=== PATIENT | male | born 1960 ===

== ENCOUNTER 2023-11-23 06:53 | Day surgery (SDC) | payer OTHER ==
[2023-11-23] MEDS ORDERED: FLUMAZENIL 0.5 MG/5 ML ML IV STA (10:26)
[2023-11-23] MEDS ORDERED: fentaNYL CITRATE 50 MCG/ML AMPUL IV PUSH ONE (10:30)
[2023-11-23] MEDS ORDERED: DIPHENHYDRAMINE HCL 50 MG/ML VIAL 1ML IV ONE (10:30)
[2023-11-23] MEDS ORDERED: MIDAZOLAM HCL 2 MG/2 ML VIAL IV ONE (10:30)
== END 2023-11-23 12:10 | disposition home or self-care (01) ==
LOC: AMB-ENDOS 06:53
PROVIDERS: ATTEND Colon & Rectal Surgery
DX: K63.5 Polyp of colon (principal); K62.1 Rectal polyp; K57.30 Diverticulosis of large intestine without perforation or abscess without bleeding; Z86.010 Personal history of colon polyps; Z88.6 Allergy status to analgesic agent; Z88.0 Allergy status to penicillin